=== PATIENT | male | born 1960 | race African-American/Black ===

== ENCOUNTER 2021-05-13 10:18 | Emergency (ER) | payer MEDICAID ==
[~2021-05-13] VITALS: Ht 177.8 cm; Wt 100.3 kg
[2021-05-13 10:25] VITALS: BP 148/85
[2021-05-13] MEDS ORDERED: POLY17PO3 PO (10:40)
== END 2021-05-13 10:50 | disposition home or self-care (01) ==
LOC: ER 10:18
DX: K59.00 Constipation, unspecified (principal); Z20.822 Contact with and (suspected) exposure to COVID-19; I10 Essential (primary) hypertension; Z59.0 Homelessness; Z98.890 Other specified postprocedural states
CPT/HCPCS: 99283; C9803; U0003; U0005